=== PATIENT | male | born 1930 | race Caucasian/White ===

== ENCOUNTER 2017-06-04 14:37 | Inpatient (IN) | payer MEDICARE, OTHER ==
[2017-06-16] MEDS ORDERED: SODIUM CHLORIDE 0.9% FLUSH 10 ML SOL IV PRN (05:30)
[2017-06-16] MEDS ORDERED: SCOPOLAMINE 1.5MG PATCH TD SCH (06:00)
[2017-06-16] MEDS ORDERED: LACTATED RINGERS 1,000 ML IV ONE (06:30)
[2017-06-16] MEDS ORDERED: BUPIVACAINE HCL 0.25% MPF 10 ML SOL INFIL ONE (06:51)
[2017-06-16] MEDS ORDERED: BUPIVACAINE LIPOSOME 20 ML SUS ONE (06:51)
[2017-06-16] MEDS ORDERED: SODIUM CHLORIDE 20 ML 40 ML ONE (06:52)
[2017-06-16] MEDS ORDERED: SEVOFLURANE INH ONE (07:05)
[2017-06-16] MEDS ORDERED: MIDAZOLAM 2 MG/2 ML SOL ONE (07:11)
[2017-06-16] MEDS ORDERED: FENTANYL 100MCG/2ML SOL ONE (07:11)
[2017-06-16] MEDS ORDERED: PROPOFOL 500 MG/50 ML EMU IV ONE (07:21)
[2017-06-16] MEDS ORDERED: CEFAZOLIN SODIUM 1 GM PDS ONE (07:29)
[2017-06-16] MEDS ORDERED: LACTATED RINGERS 1,000 ML IV SCH (07:30)
[2017-06-16] MEDS ORDERED: LIDOCAINE HCL 2% MPF SOL ONE (07:30)
[2017-06-16] MEDS: TRANEXAMIC ACID 100 MG/ML SOL ONE ×2 (08:46→10:33)
[2017-06-16] MEDS ORDERED: ALBUTEROL NEB SOL 2.5MG/3ML 1 VIAL SOL ONE (09:41)
[2017-06-16] MEDS ORDERED: ZOLPIDEM TARTRATE 5 MG TAB PO PRN (10:23)
[2017-06-16] MEDS ORDERED: ONDANSETRON 4 MG ODT BU PRN (10:23)
[2017-06-16] MEDS ORDERED: ONDANSETRON HCL 4 MG/2 ML SOL IV PRN (10:23)
[2017-06-16] MEDS ORDERED: FLEET ENEMA PR PRN (10:23)
[2017-06-16] MEDS ORDERED: DIAZEPAM 5 MG TAB PO PRN (10:23)
[2017-06-16] MEDS ORDERED: ACETAMINOPHEN 325 MG PO PRN (10:23)
[2017-06-16] MEDS ORDERED: ALUMINUM/MAGNESIUM 30 ML SUS PO PRN (10:23)
[2017-06-16] MEDS ORDERED: MAGNESIUM HYDROXIDE 30 ML SUS PO PRN (10:23)
[2017-06-16] MEDS ORDERED: BISACODYL 10 MG SUP PR PRN (10:23)
[2017-06-16] MEDS ORDERED: SODIUM CHLORIDE 0.9% 500 ML 500 ML IV PRN (10:23)
[2017-06-16] MEDS ORDERED: HYDROMORPHONE 1 MG/ML SYRINGE IV PRN (11:00)
[2017-06-16] MEDS: SODIUM CHLORIDE 0.9% FLUSH 10 ML SOL IV SCH ×2 (12:43→17:49)
[2017-06-16] MEDS: DEXTROSE/SALINE 0.45/KCL 20MEQ 1,000 ML/1,000 ML SOL IV SCH ×2 (12:43→23:27)
[2017-06-16] MEDS: APAP/OXYCODONE 325/5 TAB PO PRN ×2 (16:08→23:28)
[2017-06-16] MEDS: CEFAZOLIN (PREMIX) 1 GM 1 GM/50 ML SOL IV SCH ×2 (16:14→23:28)
[2017-06-16] MEDS: GABAPENTIN 300 MG CAP PO SCH (20:16)
[2017-06-16] MEDS: HYDROCHLOROTHIAZIDE 25 MG TAB PO SCH (20:16)
[2017-06-16] MEDS ORDERED: SENNOSIDES A AND B 8.6 MG TAB PO SCH (21:00)
[2017-06-17] MEDS: SODIUM CHLORIDE 0.9% FLUSH 10 ML SOL IV SCH ×2 (02:18→12:08)
[2017-06-17] MEDS: DEXTROSE/SALINE 0.45/KCL 20MEQ 1,000 ML/1,000 ML SOL IV SCH ×2 (06:41→10:54)
[2017-06-17 07:28] LABS: MEAN CORPUSCULAR HGB CONC 33.1 gm/dl (32.0-36.0)
[2017-06-17] MEDS ORDERED: APAP/HYDROCODONE 325/5 TAB PO PRN (08:35)
[2017-06-17] MEDS ORDERED: PANTOPRAZOLE SODIUM 40 MG ECT PO SCH (09:00)
[2017-06-17] MEDS ORDERED: RIVAROXABAN 10 MG TAB PO SCH (09:00)
[2017-06-17] MEDS ORDERED: LISINOPRIL 5 MG TAB PO SCH (09:00)
[2017-06-17] MEDS ORDERED: FERROUS SULFATE 325 MG TAB PO SCH (09:00)
[2017-06-17] MEDS: GABAPENTIN 300 MG CAP PO SCH (09:44)
[2017-06-17] MEDS: HYDROCHLOROTHIAZIDE 25 MG TAB PO SCH (09:49)
[2017-06-17 12:12] VITALS: TEMP 97.8
[2017-06-17] MEDS ORDERED: EPINEPHRINE 1:1000 AMP 1 MG/ML SOL IV PRN (12:45)
[2017-06-17] MEDS ORDERED: LIDOCAINE HCL 2% (100 MG) CARP ONE (12:51)
[2017-06-17] MEDS ORDERED: ROCURONIUM BROMIDE 10 MG/ML SOL IV ONE ×2 (12:51→13:23)
[2017-06-17] MEDS ORDERED: ATROPINE 0.1 MG/ML SOL ONE (12:51)
[2017-06-17] MEDS ORDERED: ETOMIDATE 2 MG/ML SOL IV ONE ×2 (12:51→13:00)
[2017-06-17] MEDS ORDERED: SUCCINYLCHOLINE CHLORIDE 20 MG/ML SOL IV ONE ×2 (12:51→13:01)
[2017-06-17] MEDS: SODIUM CHLORIDE 0.9% 1000ML 1,000 ML IV SCH ×2 (12:53→13:55)
[2017-06-17] MEDS ORDERED: MIDAZOLAM 2 MG/2 ML SOL ONE ×2 (13:04→13:12)
[2017-06-17] MEDS ORDERED: MIDAZOLAM 2 MG/2 ML SOL IV ONE ×2 (13:07→13:15)
[2017-06-17 13:19] LABS: ABG PH 7.36 (7.35-7.45)
[2017-06-17] MEDS ORDERED: MORPHINE SULFATE 10 MG/ML SOL ONE (13:29)
[2017-06-17] MEDS ORDERED: MORPHINE SULFATE 10 MG/ML SOL IV ONE ×2 (13:30→13:35)
[2017-06-17 13:32] VITALS: RESP 12
[2017-06-17] MEDS ORDERED: INSULIN HUMAN REGULAR 100 U/ML SOL ONE (13:40)
[2017-06-17] MEDS ORDERED: INSULIN HUMAN REGULAR 100 U/ML SOL IV ONE (13:42)
[2017-06-17 14:09] LABS: POTASSIUM 4.7 mMol/L (3.5-5.1)
[2017-06-17 14:10] LABS: CALCIUM 7.6 mg/dl (8.5-10.1)
[2017-06-17 14:55] VITALS: BP 107/71; PULSE 87; O2SAT 97
== END 2017-06-17 14:20 | disposition short-term general hospital (02) | DRG 469 ==
LOC: ACUTE CARE 06-16 05:20
PROVIDERS: ADMIT Orthopaedic Surgery; ATTEND Orthopaedic Surgery
PROC: 0SRD0J9 Replacement of Left Knee Joint with Synthetic Substitute, Cemented, Open Approach (ICD-10-PCS; principal; 2017-06-16 08:00)
PROC: 0CHY7BZ Insertion of Airway into Mouth and Throat, Via Natural or Artificial Opening (ICD-10-PCS; 2017-06-17)
DX: M17.12 Unilateral primary osteoarthritis, left knee (principal); R09.2 Respiratory arrest; Z86.2 Personal history of diseases of the blood and blood-forming organs and certain disorders involving the immune mechanism; Z86.711 Personal history of pulmonary embolism; I12.9 Hypertensive chronic kidney disease with stage 1 through stage 4 chronic kidney disease, or unspecified chronic kidney disease; E78.5 Hyperlipidemia, unspecified; N18.3 Chronic kidney disease, stage 3 (moderate); R41.0 Disorientation, unspecified; Z96.652 Presence of left artificial knee joint; T17.220A Food in pharynx causing asphyxiation, initial encounter
CPT/HCPCS: 36415; 36600; 71010; 73560; 80048; 82803; 82962; 85027; 85049; 93005; 93012; 94002; 94150; 99070; J0330; J0461; J0690; J1815; J2001; J2250; J2270; J3010; J7603; J2704; L1830

== ENCOUNTER 2017-06-26 10:26 | Inpatient (IN) | payer MEDICARE, OTHER ==
[2017-06-26] MEDS ORDERED: WARFARIN SODIUM 2 MG TAB PO SCH (18:00)
[2017-06-27] MEDS: AMIODARONE 200 MG TAB PO SCH (10:53)
[2017-06-27] MEDS: FUROSEMIDE 20 MG TAB PO SCH (10:54)
[2017-06-27] MEDS: ASPIRIN EC 81 MG PO SCH (10:54)
[2017-06-27] MEDS: LISINOPRIL 5 MG TAB PO SCH (10:55)
[2017-06-27] MEDS: PANTOPRAZOLE SODIUM 40 MG ECT PO SCH (10:55)
[2017-06-27] MEDS: CLOPIDOGREL 75 MG TAB PO SCH (10:55)
[2017-06-27] MEDS ORDERED: WARFARIN SODIUM 2 MG TAB PO ONE (18:00)
[2017-06-27] MEDS: ATORVASTATIN 10 MG TAB PO SCH (19:59)
[2017-06-28] MEDS: FUROSEMIDE 20 MG TAB PO SCH (09:11)
[2017-06-28] MEDS: CLOPIDOGREL 75 MG TAB PO SCH (09:11)
[2017-06-28] MEDS: PANTOPRAZOLE SODIUM 40 MG ECT PO SCH (09:11)
[2017-06-28] MEDS: LISINOPRIL 5 MG TAB PO SCH (09:11)
[2017-06-28] MEDS: AMIODARONE 200 MG TAB PO SCH (09:11)
[2017-06-28] MEDS: ASPIRIN EC 81 MG PO SCH (09:11)
[2017-06-28] MEDS ORDERED: WARFARIN SODIUM 2.5 MG TAB PO SCH (18:00)
[2017-06-28] MEDS: ATORVASTATIN 10 MG TAB PO SCH (20:00)
[2017-06-29] MEDS: CLOPIDOGREL 75 MG TAB PO SCH (08:58)
[2017-06-29] MEDS: PANTOPRAZOLE SODIUM 40 MG ECT PO SCH (08:58)
[2017-06-29] MEDS: FUROSEMIDE 20 MG TAB PO SCH (08:58)
[2017-06-29] MEDS: AMIODARONE 200 MG TAB PO SCH (08:58)
[2017-06-29] MEDS: LISINOPRIL 5 MG TAB PO SCH (08:58)
[2017-06-29] MEDS: ASPIRIN EC 81 MG PO SCH (08:58)
[2017-06-29] MEDS ORDERED: WARFARIN SODIUM 2 MG TAB PO ONE (18:00)
[2017-06-29] MEDS: ATORVASTATIN 10 MG TAB PO SCH (20:17)
[2017-06-30] MEDS: AMIODARONE 200 MG TAB PO SCH (09:08)
[2017-06-30] MEDS: ASPIRIN EC 81 MG PO SCH (09:08)
[2017-06-30] MEDS: PANTOPRAZOLE SODIUM 40 MG ECT PO SCH (09:09)
[2017-06-30] MEDS: FUROSEMIDE 20 MG TAB PO SCH (09:09)
[2017-06-30] MEDS: CLOPIDOGREL 75 MG TAB PO SCH (09:09)
[2017-06-30] MEDS: LISINOPRIL 5 MG TAB PO SCH (09:09)
[2017-06-30] MEDS: WARFARIN SODIUM 4 MG TAB PO SCH (18:16)
[2017-06-30] MEDS: ATORVASTATIN 10 MG TAB PO SCH (21:06)
[2017-07-01] MEDS: PANTOPRAZOLE SODIUM 40 MG ECT PO SCH (09:04)
[2017-07-01] MEDS: LISINOPRIL 5 MG TAB PO SCH (09:04)
[2017-07-01] MEDS: CLOPIDOGREL 75 MG TAB PO SCH (09:04)
[2017-07-01] MEDS: AMIODARONE 200 MG TAB PO SCH (09:05)
[2017-07-01] MEDS: FUROSEMIDE 20 MG TAB PO SCH (09:05)
[2017-07-01] MEDS: ASPIRIN EC 81 MG PO SCH (09:05)
[2017-07-01] MEDS ORDERED: TEMAZEPAM 15MG 15 MG CAP PO PRN (11:58)
[2017-07-01] MEDS: WARFARIN SODIUM 4 MG TAB PO SCH (17:56)
[2017-07-01] MEDS: ATORVASTATIN 10 MG TAB PO SCH (20:14)
[2017-07-02 07:17] LABS: BASOPHILS % (AUTO) 2 % (0-3); EOSINOPHILS % (AUTO) 2 % (0-9); HEMATOCRIT 30 % (39-53); MEAN CORPUSCULAR HGB CONC 33.3 gm/dl (32.0-36.0); MEAN CORPUSCULAR VOLUME 87 fL (80-100); MONOCYTES % (AUTO) 20.8 % (0-12); NEUTROPHILS % (AUTO) 46.5 % (37-80)
[2017-07-02 07:22] LABS: CALCIUM 8.4 mg/dl (8.5-10.1)
[2017-07-02 07:26] LABS: POTASSIUM 4.8 mMol/L (3.5-5.1)
[2017-07-02] MEDS: ASPIRIN EC 81 MG PO SCH (08:36)
[2017-07-02] MEDS: CLOPIDOGREL 75 MG TAB PO SCH (08:36)
[2017-07-02] MEDS: AMIODARONE 200 MG TAB PO SCH (08:36)
[2017-07-02] MEDS: FUROSEMIDE 20 MG TAB PO SCH (08:36)
[2017-07-02] MEDS: PANTOPRAZOLE SODIUM 40 MG ECT PO SCH (08:37)
[2017-07-02] MEDS: LISINOPRIL 5 MG TAB PO SCH (08:37)
[2017-07-02] MEDS: WARFARIN SODIUM 4 MG TAB PO SCH (17:48)
[2017-07-02] MEDS: ATORVASTATIN 10 MG TAB PO SCH (20:12)
[2017-07-03] MEDS: AMIODARONE 200 MG TAB PO SCH (09:11)
[2017-07-03] MEDS: LISINOPRIL 5 MG TAB PO SCH (09:12)
[2017-07-03] MEDS: CLOPIDOGREL 75 MG TAB PO SCH (09:12)
[2017-07-03] MEDS: PANTOPRAZOLE SODIUM 40 MG ECT PO SCH (09:12)
[2017-07-03] MEDS: ASPIRIN EC 81 MG PO SCH (09:12)
[2017-07-03] MEDS: FUROSEMIDE 20 MG TAB PO SCH (09:12)
[2017-07-03] MEDS: WARFARIN SODIUM 4 MG TAB PO SCH (18:29)
[2017-07-03] MEDS: ATORVASTATIN 10 MG TAB PO SCH (21:43)
[2017-07-04] MEDS: FUROSEMIDE 20 MG TAB PO SCH (08:43)
[2017-07-04] MEDS: ACETAMINOPHEN 325 MG PO PRN (08:43)
[2017-07-04] MEDS: AMIODARONE 200 MG TAB PO SCH (08:43)
[2017-07-04] MEDS: CLOPIDOGREL 75 MG TAB PO SCH (08:43)
[2017-07-04] MEDS: LISINOPRIL 5 MG TAB PO SCH (08:43)
[2017-07-04] MEDS: PANTOPRAZOLE SODIUM 40 MG ECT PO SCH (08:43)
[2017-07-04] MEDS: ASPIRIN EC 81 MG PO SCH (08:43)
[2017-07-04] MEDS ORDERED: WARFARIN SODIUM 2 MG TAB PO ONE (18:00)
[2017-07-04] MEDS: ATORVASTATIN 10 MG TAB PO SCH (20:20)
[2017-07-05] MEDS: LISINOPRIL 5 MG TAB PO SCH (09:16)
[2017-07-05] MEDS: ASPIRIN EC 81 MG PO SCH (09:16)
[2017-07-05] MEDS: FUROSEMIDE 20 MG TAB PO SCH (09:16)
[2017-07-05] MEDS: AMIODARONE 200 MG TAB PO SCH (09:16)
[2017-07-05] MEDS: PANTOPRAZOLE SODIUM 40 MG ECT PO SCH (09:16)
[2017-07-05] MEDS: CLOPIDOGREL 75 MG TAB PO SCH (09:16)
[2017-07-05] MEDS ORDERED: WARFARIN SODIUM 4 MG TAB PO ONE (18:00)
[2017-07-05] MEDS: ATORVASTATIN 10 MG TAB PO SCH (20:47)
[2017-07-06] MEDS: CLOPIDOGREL 75 MG TAB PO SCH (08:43)
[2017-07-06] MEDS: LISINOPRIL 5 MG TAB PO SCH (08:43)
[2017-07-06] MEDS: FUROSEMIDE 20 MG TAB PO SCH (08:43)
[2017-07-06] MEDS: AMIODARONE 200 MG TAB PO SCH (08:43)
[2017-07-06] MEDS: ASPIRIN EC 81 MG PO SCH (08:43)
[2017-07-06] MEDS: PANTOPRAZOLE SODIUM 40 MG ECT PO SCH (08:43)
[2017-07-06] MEDS ORDERED: WARFARIN SODIUM 2 MG TAB PO ONE (18:00)
[2017-07-06] MEDS: ATORVASTATIN 10 MG TAB PO SCH (20:11)
[2017-07-07] MEDS: CLOPIDOGREL 75 MG TAB PO SCH (08:51)
[2017-07-07] MEDS: PANTOPRAZOLE SODIUM 40 MG ECT PO SCH (08:51)
[2017-07-07] MEDS: FUROSEMIDE 20 MG TAB PO SCH (08:51)
[2017-07-07] MEDS: AMIODARONE 200 MG TAB PO SCH (08:51)
[2017-07-07] MEDS: ASPIRIN EC 81 MG PO SCH ×2 (08:51→08:59)
[2017-07-07] MEDS: LISINOPRIL 5 MG TAB PO SCH (08:52)
[2017-07-07] MEDS: ASPIRIN 81 MG CHEWABLE CTB PO SCH (09:56)
[2017-07-07] MEDS: ATORVASTATIN 10 MG TAB PO SCH (20:26)
[2017-07-08] MEDS: PANTOPRAZOLE SODIUM 40 MG ECT PO SCH (08:59)
[2017-07-08] MEDS: LISINOPRIL 5 MG TAB PO SCH (08:59)
[2017-07-08] MEDS: AMIODARONE 200 MG TAB PO SCH (08:59)
[2017-07-08] MEDS: ASPIRIN 81 MG CHEWABLE CTB PO SCH (08:59)
[2017-07-08] MEDS: CLOPIDOGREL 75 MG TAB PO SCH (08:59)
[2017-07-08] MEDS: FUROSEMIDE 20 MG TAB PO SCH (08:59)
[2017-07-08] MEDS: WARFARIN SODIUM 2 MG TAB PO SCH (17:56)
[2017-07-08] MEDS: ATORVASTATIN 10 MG TAB PO SCH (20:40)
[2017-07-09] MEDS: AMIODARONE 200 MG TAB PO SCH (09:56)
[2017-07-09] MEDS: FUROSEMIDE 20 MG TAB PO SCH (09:56)
[2017-07-09] MEDS: CLOPIDOGREL 75 MG TAB PO SCH (09:56)
[2017-07-09] MEDS: PANTOPRAZOLE SODIUM 40 MG ECT PO SCH (09:57)
[2017-07-09] MEDS: ASPIRIN 81 MG CHEWABLE CTB PO SCH (09:57)
[2017-07-09] MEDS: LISINOPRIL 5 MG TAB PO SCH (09:57)
[2017-07-09 13:36] LABS: APPEARANCE,URINE Slightly Cloudy; BILIRUBIN,URINE NEGATIVE (NEGATIVE); COLOR,URINE Dark yellow; GLUCOSE, URINE (UA) NEGATIVE (NEGATIVE); KETONES,URINE NEGATIVE (NEGATIVE); LEUKOCYTE ESTERASE ,URINE 2+ (NEGATIVE); NITRATE,URINE NEGATIVE (NEGATIVE); OCCULT BLOOD,URINE 3+ (NEG-TRACE)
[2017-07-09 13:56] LABS: RBC,URINE TNTC (0-3AV/HPF)
[2017-07-09] MEDS ORDERED: LEVOFLOXACIN 500 MG TAB PO SCH (15:49)
[2017-07-09] MEDS: WARFARIN SODIUM 2 MG TAB PO SCH (17:39)
[2017-07-09] MEDS: ATORVASTATIN 10 MG TAB PO SCH (20:53)
[2017-07-10] MEDS: SULFAMETHOXAZOLE/TRIMETHOPRI 800/160 MG PO SCH ×2 (09:33→21:06)
[2017-07-10] MEDS: ACETAMINOPHEN 325 MG PO PRN (09:33)
[2017-07-10] MEDS: ASPIRIN 81 MG CHEWABLE CTB PO SCH (09:35)
[2017-07-10] MEDS: FUROSEMIDE 20 MG TAB PO SCH (09:35)
[2017-07-10] MEDS: PANTOPRAZOLE SODIUM 40 MG ECT PO SCH (09:35)
[2017-07-10] MEDS: AMIODARONE 200 MG TAB PO SCH (09:35)
[2017-07-10] MEDS: CLOPIDOGREL 75 MG TAB PO SCH (09:35)
[2017-07-10] MEDS: LISINOPRIL 5 MG TAB PO SCH (09:35)
[2017-07-10] MEDS ORDERED: WARFARIN SODIUM 1 MG TAB PO ONE (18:00)
[2017-07-10] MEDS: ATORVASTATIN 10 MG TAB PO SCH (21:06)
[2017-07-11] MEDS: ACETAMINOPHEN 325 MG PO PRN (04:06)
[2017-07-11 07:44] LABS: BASOPHILS % (AUTO) 1 % (0-3); EOSINOPHILS % (AUTO) 1 % (0-9); HEMATOCRIT 32 % (39-53); MEAN CORPUSCULAR VOLUME 85 fL (80-100); MONOCYTES % (AUTO) 23.6 % (0-12); NEUTROPHILS % (AUTO) 53.3 % (37-80)
[2017-07-11 07:48] LABS: CALCIUM 8.6 mg/dl (8.5-10.1); POTASSIUM 4.6 mMol/L (3.5-5.1)
[2017-07-11] MEDS ORDERED: APAP/HYDROCODONE 325/5 TAB PO PRN (10:47)
[2017-07-11] MEDS: FUROSEMIDE 20 MG TAB PO SCH (10:50)
[2017-07-11] MEDS: AMIODARONE 200 MG TAB PO SCH (10:50)
[2017-07-11] MEDS: CLOPIDOGREL 75 MG TAB PO SCH (10:51)
[2017-07-11] MEDS: PANTOPRAZOLE SODIUM 40 MG ECT PO SCH (10:51)
[2017-07-11] MEDS: LISINOPRIL 5 MG TAB PO SCH (10:52)
[2017-07-11] MEDS: ASPIRIN 81 MG CHEWABLE CTB PO SCH (10:52)
[2017-07-11] MEDS: SULFAMETHOXAZOLE/TRIMETHOPRI 800/160 MG PO SCH ×2 (10:53→21:31)
[2017-07-11] MEDS: BISACODYL 5 MG TAB ECT PO PRN (10:54)
[2017-07-11] MEDS: ONDANSETRON 4 MG ODT BU PRN ×2 (13:16→17:09)
[2017-07-11] MEDS ORDERED: TRAMADOL HYDROCHLORIDE 50 MG TAB PO PRN (16:36)
[2017-07-11] MEDS ORDERED: WARFARIN SODIUM 1 MG TAB PO ONE (18:00)
[2017-07-11] MEDS: ATORVASTATIN 10 MG TAB PO SCH (21:31)
[2017-07-12] MEDS: FUROSEMIDE 20 MG TAB PO SCH (09:05)
[2017-07-12] MEDS: LISINOPRIL 5 MG TAB PO SCH (09:06)
[2017-07-12] MEDS: CLOPIDOGREL 75 MG TAB PO SCH (09:06)
[2017-07-12] MEDS: PANTOPRAZOLE SODIUM 40 MG ECT PO SCH (09:06)
[2017-07-12] MEDS: ASPIRIN 81 MG CHEWABLE CTB PO SCH (09:07)
[2017-07-12] MEDS: SULFAMETHOXAZOLE/TRIMETHOPRI 800/160 MG PO SCH ×2 (09:07→20:29)
[2017-07-12] MEDS: BISACODYL 5 MG TAB ECT PO PRN (09:07)
[2017-07-12] MEDS: ONDANSETRON 4 MG ODT BU PRN ×2 (09:07→16:52)
[2017-07-12] MEDS: AMIODARONE 200 MG TAB PO SCH (09:19)
[2017-07-12] MEDS ORDERED: WARFARIN SODIUM 2 MG TAB PO ONE (18:00)
[2017-07-12] MEDS: MAGNESIUM HYDROXIDE 30 ML SUS GT PRN (18:35)
[2017-07-12] MEDS: ATORVASTATIN 10 MG TAB PO SCH (20:29)
[2017-07-12] MEDS: PROCHLORPERAZINE EDISYLATE 5 MG/ML SOL IM PRN (21:01)
[2017-07-13] MEDS: PROCHLORPERAZINE EDISYLATE 5 MG/ML SOL IM PRN (08:34)
[2017-07-13] MEDS: AMIODARONE 200 MG TAB PO SCH (08:51)
[2017-07-13] MEDS: LISINOPRIL 5 MG TAB PO SCH (08:52)
[2017-07-13] MEDS: CLOPIDOGREL 75 MG TAB PO SCH (08:52)
[2017-07-13] MEDS: PANTOPRAZOLE SODIUM 40 MG ECT PO SCH (08:52)
[2017-07-13] MEDS: FUROSEMIDE 20 MG TAB PO SCH (08:52)
[2017-07-13] MEDS: ASPIRIN 81 MG CHEWABLE CTB PO SCH (08:53)
[2017-07-13] MEDS: SULFAMETHOXAZOLE/TRIMETHOPRI 800/160 MG PO SCH ×2 (08:53→20:33)
[2017-07-13] MEDS: BISACODYL 5 MG TAB ECT PO PRN (08:53)
[2017-07-13] MEDS ORDERED: WARFARIN SODIUM 1 MG TAB PO ONE (18:00)
[2017-07-13] MEDS: ATORVASTATIN 10 MG TAB PO SCH (20:31)
[2017-07-14] MEDS: AMIODARONE 200 MG TAB PO SCH (08:25)
[2017-07-14] MEDS: CLOPIDOGREL 75 MG TAB PO SCH (08:25)
[2017-07-14] MEDS: ASPIRIN 81 MG CHEWABLE CTB PO SCH (08:26)
[2017-07-14] MEDS: PANTOPRAZOLE SODIUM 40 MG ECT PO SCH (08:26)
[2017-07-14] MEDS: LISINOPRIL 5 MG TAB PO SCH (08:26)
[2017-07-14] MEDS: SULFAMETHOXAZOLE/TRIMETHOPRI 800/160 MG PO SCH ×2 (08:27→20:00)
[2017-07-14] MEDS: FUROSEMIDE 20 MG TAB PO SCH (08:29)
[2017-07-14] MEDS: PROCHLORPERAZINE EDISYLATE 5 MG/ML SOL IM PRN ×2 (08:51→15:24)
[2017-07-14] MEDS ORDERED: WARFARIN SODIUM 2 MG TAB PO ONE (18:00)
[2017-07-14] MEDS: ATORVASTATIN 10 MG TAB PO SCH (20:00)
[2017-07-15 07:21] LABS: ALBUMIN 2.3 gm/dl (3.4-5.0); CALCIUM 8.1 mg/dl (8.5-10.1); POTASSIUM 4.9 mMol/L (3.5-5.1)
[2017-07-15 07:27] LABS: MEAN CORPUSCULAR HGB CONC 32.8 gm/dl (32.0-36.0)
[2017-07-15] MEDS: CLOPIDOGREL 75 MG TAB PO SCH (09:45)
[2017-07-15] MEDS: PANTOPRAZOLE SODIUM 40 MG ECT PO SCH (09:45)
[2017-07-15] MEDS: ASPIRIN 81 MG CHEWABLE CTB PO SCH (09:45)
[2017-07-15] MEDS ORDERED: SODIUM CHLORIDE 0.9% 100 ML 100 ML IV ONE (09:55)
[2017-07-15] MEDS ORDERED: LEVOFLOXACIN 25 MG/ML SOL IV ONE (09:55)
[2017-07-15] MEDS: LEVOFLOXACIN 25 MG/ML 500 MG in SODIUM CHLORIDE 0.9% 100 ML 100 ML IV SCH (10:14)
[2017-07-15] MEDS: SODIUM CHLORIDE 0.9% FLUSH 10 ML SOL IV SCH ×2 (10:22→17:47)
[2017-07-15] MEDS: PROCHLORPERAZINE EDISYLATE 5 MG/ML SOL IM PRN (16:23)
[2017-07-15] MEDS ORDERED: WARFARIN SODIUM 4 MG TAB PO SCH (18:00)
[2017-07-15] MEDS: ATORVASTATIN 10 MG TAB PO SCH (20:28)
[2017-07-16] MEDS: SODIUM CHLORIDE 0.9% FLUSH 10 ML SOL IV SCH ×4 (05:58→17:33)
[2017-07-16] MEDS ORDERED: SODIUM CHLORIDE 0.9% 100 ML 100 ML IV ONE (08:02)
[2017-07-16] MEDS ORDERED: LEVOFLOXACIN 25 MG/ML SOL IV ONE (08:02)
[2017-07-16] MEDS: LEVOFLOXACIN 25 MG/ML 500 MG in SODIUM CHLORIDE 0.9% 100 ML 100 ML IV SCH (08:38)
[2017-07-16] MEDS: PROCHLORPERAZINE EDISYLATE 5 MG/ML SOL IM PRN (08:43)
[2017-07-16] MEDS: ASPIRIN 81 MG CHEWABLE CTB PO SCH (09:33)
[2017-07-16] MEDS: PANTOPRAZOLE SODIUM 40 MG ECT PO SCH (09:33)
[2017-07-16] MEDS: CLOPIDOGREL 75 MG TAB PO SCH (09:33)
[2017-07-16] MEDS: ONDANSETRON 4 MG ODT BU PRN (11:37)
[2017-07-16] MEDS: ACETAMINOPHEN 325 MG PO PRN (16:05)
[2017-07-16] MEDS: METOCLOPRAMIDE HYDROCHLORIDE 5 MG TAB PO SCH (16:05)
[2017-07-16] MEDS: WARFARIN SODIUM 4 MG TAB PO SCH (17:32)
[2017-07-16] MEDS: ATORVASTATIN 10 MG TAB PO SCH (20:32)
[2017-07-17] MEDS: SODIUM CHLORIDE 0.9% FLUSH 10 ML SOL IV SCH ×3 (02:42→17:42)
[2017-07-17] MEDS: METOCLOPRAMIDE HYDROCHLORIDE 5 MG TAB PO SCH ×3 (07:22→16:09)
[2017-07-17] MEDS: ASPIRIN 81 MG CHEWABLE CTB PO SCH (09:01)
[2017-07-17] MEDS: CLOPIDOGREL 75 MG TAB PO SCH (09:01)
[2017-07-17] MEDS: PANTOPRAZOLE SODIUM 40 MG ECT PO SCH (09:01)
[2017-07-17] MEDS ORDERED: SODIUM CHLORIDE 0.9% 100 ML 100 ML IV ONE (09:12)
[2017-07-17] MEDS ORDERED: LEVOFLOXACIN 25 MG/ML SOL IV ONE (09:12)
[2017-07-17] MEDS: LEVOFLOXACIN 25 MG/ML 500 MG in SODIUM CHLORIDE 0.9% 100 ML 100 ML IV SCH (09:21)
[2017-07-17] MEDS: WARFARIN SODIUM 4 MG TAB PO SCH (17:42)
[2017-07-17] MEDS: ATORVASTATIN 10 MG TAB PO SCH (20:48)
[2017-07-17] MEDS: BISACODYL 5 MG TAB ECT PO PRN (21:01)
[2017-07-18] MEDS: SODIUM CHLORIDE 0.9% FLUSH 10 ML SOL IV SCH ×4 (02:50→17:57)
[2017-07-18] MEDS: METOCLOPRAMIDE HYDROCHLORIDE 5 MG TAB PO SCH ×3 (07:15→16:04)
[2017-07-18] MEDS ORDERED: LEVOFLOXACIN 25 MG/ML SOL IV ONE (07:36)
[2017-07-18] MEDS ORDERED: SODIUM CHLORIDE 0.9% 100 ML 100 ML IV ONE (07:36)
[2017-07-18] MEDS ORDERED: SODIUM CHLORIDE 0.45% 1000 ML 1,000 ML with POTASSIUM CHLORIDE 2 MEQ/ML 20 MEQ IV ONE (07:53)
[2017-07-18] MEDS: LEVOFLOXACIN 25 MG/ML 500 MG in SODIUM CHLORIDE 0.9% 100 ML 100 ML IV SCH (08:01)
[2017-07-18] MEDS: PANTOPRAZOLE SODIUM 40 MG ECT PO SCH (08:01)
[2017-07-18] MEDS: CLOPIDOGREL 75 MG TAB PO SCH (08:01)
[2017-07-18] MEDS: ASPIRIN 81 MG CHEWABLE CTB PO SCH (08:01)
[2017-07-18] MEDS: MAGNESIUM HYDROXIDE 30 ML SUS GT PRN (08:01)
[2017-07-18] MEDS: WARFARIN SODIUM 2 MG TAB PO SCH (17:55)
[2017-07-18] MEDS: ATORVASTATIN 10 MG TAB PO SCH (20:52)
[2017-07-19] MEDS: SODIUM CHLORIDE 0.9% FLUSH 10 ML SOL IV SCH ×4 (02:40→17:47)
[2017-07-19] MEDS: ACETAMINOPHEN 325 MG PO PRN (03:39)
[2017-07-19] MEDS ORDERED: LEVOFLOXACIN 25 MG/ML SOL IV ONE ×2 (05:42→23:10)
[2017-07-19] MEDS ORDERED: SODIUM CHLORIDE 0.9% 100 ML 100 ML IV ONE ×2 (05:42→23:10)
[2017-07-19] MEDS: METOCLOPRAMIDE HYDROCHLORIDE 5 MG TAB PO SCH ×3 (07:18→16:09)
[2017-07-19] MEDS: CLOPIDOGREL 75 MG TAB PO SCH (08:29)
[2017-07-19] MEDS: PANTOPRAZOLE SODIUM 40 MG ECT PO SCH (08:29)
[2017-07-19] MEDS: ASPIRIN 81 MG CHEWABLE CTB PO SCH (08:29)
[2017-07-19] MEDS: LEVOFLOXACIN 25 MG/ML 500 MG in SODIUM CHLORIDE 0.9% 100 ML 100 ML IV SCH (08:33)
[2017-07-19] MEDS: WARFARIN SODIUM 2 MG TAB PO SCH (17:32)
[2017-07-19] MEDS: ATORVASTATIN 10 MG TAB PO SCH (20:07)
[2017-07-20] MEDS: SODIUM CHLORIDE 0.9% FLUSH 10 ML SOL IV SCH ×4 (03:00→17:50)
[2017-07-20] MEDS: METOCLOPRAMIDE HYDROCHLORIDE 5 MG TAB PO SCH ×3 (06:47→16:30)
[2017-07-20] MEDS: CLOPIDOGREL 75 MG TAB PO SCH (08:04)
[2017-07-20] MEDS: ASPIRIN 81 MG CHEWABLE CTB PO SCH (08:04)
[2017-07-20] MEDS: PANTOPRAZOLE SODIUM 40 MG ECT PO SCH (08:04)
[2017-07-20] MEDS: LEVOFLOXACIN 25 MG/ML 500 MG in SODIUM CHLORIDE 0.9% 100 ML 100 ML IV SCH (08:11)
[2017-07-20] MEDS ORDERED: WARFARIN SODIUM 4 MG TAB PO ONE (18:00)
[2017-07-20] MEDS: ATORVASTATIN 10 MG TAB PO SCH (21:19)
[2017-07-21] MEDS: SODIUM CHLORIDE 0.9% FLUSH 10 ML SOL IV SCH ×3 (02:20→10:24)
[2017-07-21] MEDS: METOCLOPRAMIDE HYDROCHLORIDE 5 MG TAB PO SCH ×3 (07:12→16:19)
[2017-07-21 07:36] LABS: ALBUMIN 2.1 gm/dl (3.4-5.0)
[2017-07-21 07:37] LABS: POTASSIUM 4.5 mMol/L (3.5-5.1)
[2017-07-21] MEDS ORDERED: SODIUM CHLORIDE 0.9% 100 ML 100 ML IV ONE (08:40)
[2017-07-21] MEDS ORDERED: LEVOFLOXACIN 25 MG/ML SOL IV ONE (08:40)
[2017-07-21] MEDS: LEVOFLOXACIN 25 MG/ML 500 MG in SODIUM CHLORIDE 0.9% 100 ML 100 ML IV SCH (08:51)
[2017-07-21] MEDS: PANTOPRAZOLE SODIUM 40 MG ECT PO SCH (08:51)
[2017-07-21] MEDS: ASPIRIN 81 MG CHEWABLE CTB PO SCH (08:51)
[2017-07-21] MEDS: CLOPIDOGREL 75 MG TAB PO SCH (08:51)
[2017-07-21] MEDS: ATORVASTATIN 10 MG TAB PO SCH (20:49)
[2017-07-22] MEDS: SODIUM CHLORIDE 0.9% FLUSH 10 ML SOL IV SCH ×4 (01:16→15:49)
[2017-07-22] MEDS: METOCLOPRAMIDE HYDROCHLORIDE 5 MG TAB PO SCH ×3 (07:12→15:48)
[2017-07-22] MEDS ORDERED: SODIUM CHLORIDE 0.9% 100 ML 100 ML IV ONE (07:38)
[2017-07-22] MEDS ORDERED: LEVOFLOXACIN 25 MG/ML SOL IV ONE (07:38)
[2017-07-22] MEDS: LEVOFLOXACIN 25 MG/ML 500 MG in SODIUM CHLORIDE 0.9% 100 ML 100 ML IV SCH (08:10)
[2017-07-22] MEDS: CLOPIDOGREL 75 MG TAB PO SCH (08:11)
[2017-07-22] MEDS: PANTOPRAZOLE SODIUM 40 MG ECT PO SCH (08:11)
[2017-07-22] MEDS: ASPIRIN 81 MG CHEWABLE CTB PO SCH (08:11)
[2017-07-22] MEDS: WARFARIN SODIUM 2 MG TAB PO SCH (17:17)
[2017-07-22] MEDS: ATORVASTATIN 10 MG TAB PO SCH (20:15)
[2017-07-23] MEDS: SODIUM CHLORIDE 0.9% FLUSH 10 ML SOL IV SCH ×3 (00:01→16:27)
[2017-07-23] MEDS: METOCLOPRAMIDE HYDROCHLORIDE 5 MG TAB PO SCH ×3 (07:10→16:30)
[2017-07-23] MEDS: ASPIRIN 81 MG CHEWABLE CTB PO SCH (09:04)
[2017-07-23] MEDS: PANTOPRAZOLE SODIUM 40 MG ECT PO SCH (09:04)
[2017-07-23] MEDS: CLOPIDOGREL 75 MG TAB PO SCH (09:04)
[2017-07-23] MEDS: FUROSEMIDE 40 MG TAB PO SCH (17:05)
[2017-07-23] MEDS: WARFARIN SODIUM 2 MG TAB PO SCH (17:06)
[2017-07-23] MEDS: ATORVASTATIN 10 MG TAB PO SCH (20:00)
[2017-07-24] MEDS: ACETAMINOPHEN 325 MG PO PRN ×2 (01:22→20:05)
[2017-07-24] MEDS: METOCLOPRAMIDE HYDROCHLORIDE 5 MG TAB PO SCH ×3 (06:12→16:25)
[2017-07-24] MEDS: PANTOPRAZOLE SODIUM 40 MG ECT PO SCH (08:13)
[2017-07-24] MEDS: CLOPIDOGREL 75 MG TAB PO SCH (08:13)
[2017-07-24] MEDS: ASPIRIN 81 MG CHEWABLE CTB PO SCH (08:13)
[2017-07-24] MEDS: FUROSEMIDE 40 MG TAB PO SCH (08:15)
[2017-07-24] MEDS ORDERED: WARFARIN SODIUM 4 MG TAB PO SCH (18:00)
[2017-07-24] MEDS: ATORVASTATIN 10 MG TAB PO SCH (20:05)
[2017-07-25] MEDS: METOCLOPRAMIDE HYDROCHLORIDE 5 MG TAB PO SCH ×2 (07:39→11:07)
[2017-07-25 08:10] VITALS: BP 129/54; PULSE 59; RESP 16; TEMP 98.3; O2SAT 96
[2017-07-25] MEDS: CLOPIDOGREL 75 MG TAB PO SCH (08:12)
[2017-07-25] MEDS: PANTOPRAZOLE SODIUM 40 MG ECT PO SCH (08:12)
[2017-07-25] MEDS: FUROSEMIDE 40 MG TAB PO SCH (08:12)
[2017-07-25] MEDS: ASPIRIN 81 MG CHEWABLE CTB PO SCH (08:12)
[2017-07-25] MEDS ORDERED: WARFARIN SODIUM 2 MG TAB PO SCH (18:00)
== END 2017-07-25 13:25 | DRG 564 ==
LOC: ACUTE CARE 12:43
PROVIDERS: ADMIT Family Medicine; ATTEND Family Medicine
PROC: F01ZDFZ Gait and/or Balance Assessment using Assistive, Adaptive, Supportive or Protective Equipment (ICD-10-PCS; principal; 2017-06-26)
PROC: F01ZBZZ Bed Mobility Assessment (ICD-10-PCS; 2017-06-26)
PROC: F01ZCZZ Transfer Assessment (ICD-10-PCS; 2017-06-26)
PROC: F02Z1ZZ Dressing Assessment (ICD-10-PCS; 2017-06-27)
PROC: F02Z0ZZ Bathing/Showering Assessment (ICD-10-PCS; 2017-06-27)
PROC: F02Z3ZZ Grooming/Personal Hygiene Assessment (ICD-10-PCS; 2017-06-27)
DX: Z96.652 Presence of left artificial knee joint (principal); I50.21 Acute systolic (congestive) heart failure; J18.9 Pneumonia, unspecified organism; I48.91 Unspecified atrial fibrillation; N18.3 Chronic kidney disease, stage 3 (moderate); N39.0 Urinary tract infection, site not specified; I25.10 Atherosclerotic heart disease of native coronary artery without angina pectoris; R13.10 Dysphagia, unspecified; K59.00 Constipation, unspecified; M25.562 Pain in left knee; R30.0 Dysuria; R33.9 Retention of urine, unspecified
CPT/HCPCS: 36415; 51798; 71010; 73564; 74230; 80048; 80053; 81001; 85025; 85027; 85610; 93005; J0780; J1956; A6219; A6232; Q3014

== ENCOUNTER 2017-08-31 15:32 | Emergency (ER) | payer MEDICARE, OTHER ==
[2017-08-31] MEDS ORDERED: LIDOCAINE HCL 2% (VISCOUS) 20 ML SOL MT ONE (15:45)
[2017-08-31] MEDS ORDERED: ALUMINUM/MAGNESIUM 30 ML SUS PO ONE (15:47)
[2017-08-31] MEDS ORDERED: LIDOCAINE HCL 2% (VISCOUS) 20 ML SOL ONE (15:48)
[2017-08-31] MEDS ORDERED: ALUMINUM/MAGNESIUM 30 ML SUS ONE (15:48)
[2017-08-31 15:50] LABS: BASOPHILS % (AUTO) 1 % (0-3); EOSINOPHILS % (AUTO) 0 % (0-9); HEMATOCRIT 29 % (39-53); MEAN CORPUSCULAR HGB CONC 32.7 gm/dl (32.0-36.0); MEAN CORPUSCULAR VOLUME 82 fL (80-100); MONOCYTES % (AUTO) 12.2 % (0-12); NEUTROPHILS % (AUTO) 67.4 % (37-80)
[2017-08-31 15:59] VITALS: TEMP 98.8
[2017-08-31 16:06] LABS: ALBUMIN 2.3 gm/dl (3.4-5.0); ALT 17 IU/L (14-63); CALCIUM 8.2 mg/dl (8.5-10.1); GLOM FILT RATE 45 mL/min (>60); POTASSIUM 4.1 mMol/L (3.5-5.1); SODIUM 140 mMol/L (136-145)
[2017-08-31 16:18] LABS: APPEARANCE,URINE Slightly Cloudy; BILIRUBIN,URINE NEGATIVE (NEGATIVE); COLOR,URINE Yellow; GLUCOSE, URINE (UA) NEGATIVE (NEGATIVE); KETONES,URINE NEGATIVE (NEGATIVE); LEUKOCYTE ESTERASE ,URINE 2+ (NEGATIVE); NITRATE,URINE NEGATIVE (NEGATIVE); OCCULT BLOOD,URINE 1+ (NEG-TRACE); UROBILINOGEN,URINE 0.2 (0.2-1.0 EU)
[2017-08-31 16:28] LABS: RBC,URINE 0-3 (0-3AV/HPF); WBC,URINE 20-25 (0-5AV/HPF)
[2017-08-31 16:56] VITALS: RESP 27
[2017-08-31 16:57] VITALS: BP 134/66; PULSE 76; O2SAT 98
== END 2017-08-31 16:51 | DRG 313 ==
LOC: ED 15:32
DX: R07.9 Chest pain, unspecified (principal); I50.9 Heart failure, unspecified
CPT/HCPCS: 36415; 71010; 80053; 81001; 83880; 84484; 85025; 93005; 99283

== ENCOUNTER 2017-10-02 15:37 | Emergency (ER) | payer MEDICARE, OTHER ==
[2017-10-02 15:56] LABS: APPEARANCE,URINE Slightly Cloudy; BILIRUBIN,URINE NEGATIVE (NEGATIVE); COLOR,URINE Yellow; GLUCOSE, URINE (UA) NEGATIVE (NEGATIVE); KETONES,URINE NEGATIVE (NEGATIVE); LEUKOCYTE ESTERASE ,URINE 2+ (NEGATIVE); NITRATE,URINE POSITIVE (NEGATIVE); OCCULT BLOOD,URINE 2+ (NEG-TRACE); PH,URINE 5.5; UROBILINOGEN,URINE 0.2 (0.2-1.0 EU)
[2017-10-02 16:12] LABS: WBC,URINE 30-45 (0-5AV/HPF)
[2017-10-02 16:33] LABS: BASOPHILS % (AUTO) 1 % (0-3); EOSINOPHILS % (AUTO) 0 % (0-9); HEMATOCRIT 29 % (39-53); MEAN CORPUSCULAR HGB CONC 33.1 gm/dl (32.0-36.0); MEAN CORPUSCULAR VOLUME 82 fL (80-100); MONOCYTES % (AUTO) 21.8 % (0-12); NEUTROPHILS % (AUTO) 65.4 % (37-80)
[2017-10-02 16:43] LABS: ALBUMIN 2.5 gm/dl (3.4-5.0); ALT 17 IU/L (14-63); CALCIUM 8.3 mg/dl (8.5-10.1); GLOM FILT RATE 44 mL/min (>60); POTASSIUM 4.2 mMol/L (3.5-5.1); SODIUM 142 mMol/L (136-145)
[2017-10-02 16:50] LABS: NORMAL RBCS PRESENT
[2017-10-02] MEDS ORDERED: LEVOFLOXACIN 500 MG TAB PO ONE (17:58)
[2017-10-02] MEDS ORDERED: LEVOFLOXACIN 500 MG TAB ONE (17:59)
[2017-10-02 18:31] VITALS: BP 149/88; PULSE 65; RESP 16; TEMP 97.1; O2SAT 96
== END 2017-10-02 18:14 | disposition home or self-care (01) | DRG 605 ==
LOC: ED 15:37
DX: S51.011A Laceration without foreign body of right elbow, initial encounter (principal); N39.0 Urinary tract infection, site not specified; W19.XXXA Unspecified fall, initial encounter; Z79.01 Long term (current) use of anticoagulants
CPT/HCPCS: 36415; 70450; 80053; 81001; 84484; 85025; 85610; 85730; 87077; 87088; 87186; 93005; 99284; A6232

== ENCOUNTER 2017-10-06 18:06 | Emergency (ER) | payer MEDICARE, OTHER ==
[2017-10-06 19:21] LABS: BASOPHILS % (AUTO) 1 % (0-3); EOSINOPHILS % (AUTO) 1 % (0-9); HEMATOCRIT 30 % (39-53); MEAN CORPUSCULAR HGB CONC 32.5 gm/dl (32.0-36.0); MONOCYTES % (AUTO) 15.9 % (0-12); NEUTROPHILS % (AUTO) 48.9 % (37-80)
[2017-10-06 19:24] LABS: MEAN CORPUSCULAR VOLUME 81 fL (80-100)
[2017-10-06 19:29] LABS: CALCIUM 8.2 mg/dl (8.5-10.1)
[2017-10-06 19:45] LABS: ANISOCYTOSIS SLIGHT AMT; HYPOCHROMASIA SLIGHT AMT; TEAR DROP CELLS PRESENT
[2017-10-06 19:46] LABS: OVALOCYTES PRESENT
[2017-10-06 20:04] VITALS: TEMP 97.9
[2017-10-06 20:45] VITALS: RESP 20
[2017-10-06 21:09] VITALS: BP 130/72; PULSE 67; O2SAT 96
== END 2017-10-06 21:02 | disposition home or self-care (01) | DRG 700 ==
LOC: ED 18:06
DX: T83.091A Other mechanical complication of indwelling urethral catheter, initial encounter (principal); R31.9 Hematuria, unspecified; R33.9 Retention of urine, unspecified; Z79.01 Long term (current) use of anticoagulants
CPT/HCPCS: 36415; 80048; 85025; 85610; 99283

== ENCOUNTER 2017-10-07 09:29 | Emergency (ER) | payer MEDICARE, OTHER ==
[2017-10-07 10:00] VITALS: RESP 16; TEMP 97.8
[2017-10-07 10:58] VITALS: BP 148/76; PULSE 64; O2SAT 95
== END 2017-10-07 10:34 | disposition home or self-care (01) | DRG 696 ==
LOC: ED 09:29
DX: R33.9 Retention of urine, unspecified (principal)
CPT/HCPCS: 99282

== ENCOUNTER 2017-10-14 21:55 | Emergency (ER) | payer MEDICARE, OTHER ==
[2017-10-14 22:24] LABS: BASOPHILS % (AUTO) 1 % (0-3); EOSINOPHILS % (AUTO) 2 % (0-9); HEMATOCRIT 29 % (39-53); MEAN CORPUSCULAR HGB CONC 30.5 gm/dl (32.0-36.0); MEAN CORPUSCULAR VOLUME 86 fL (80-100); MONOCYTES % (AUTO) 17.6 % (0-12); NEUTROPHILS % (AUTO) 35.4 % (37-80)
[2017-10-14 22:31] LABS: CALCIUM 8.2 mg/dl (8.5-10.1); POTASSIUM 4.2 mMol/L (3.5-5.1)
[2017-10-14 22:34] LABS: TARGET CELLS PRESENT
[2017-10-14 22:35] VITALS: TEMP 98.7
[2017-10-14 22:38] LABS: APPEARANCE,URINE Clear; BILIRUBIN,URINE NEGATIVE (NEGATIVE); COLOR,URINE Yellow; GLUCOSE, URINE (UA) NEGATIVE (NEGATIVE); KETONES,URINE NEGATIVE (NEGATIVE); LEUKOCYTE ESTERASE ,URINE TRACE (NEGATIVE); NITRATE,URINE NEGATIVE (NEGATIVE); OCCULT BLOOD,URINE 3+ (NEG-TRACE); PH,URINE 5.5; UROBILINOGEN,URINE 0.2 (0.2-1.0 EU)
[2017-10-14 22:41] LABS: RBC,URINE 60-80 (0-3AV/HPF)
[2017-10-14 23:29] VITALS: RESP 16
[2017-10-14 23:30] VITALS: BP 135/75; PULSE 56; O2SAT 95
== END 2017-10-14 23:15 | disposition home or self-care (01) | DRG 696 ==
LOC: ED 21:55
DX: R31.9 Hematuria, unspecified (principal); Z79.01 Long term (current) use of anticoagulants
CPT/HCPCS: 80048; 81001; 85025; 85610; 99283

== ENCOUNTER 2017-12-08 16:31 | Emergency (ER) | payer MEDICARE, OTHER ==
[2017-12-08 16:31] VITALS: O2SAT 95
[2017-12-08 17:12] VITALS: BP 157/80; PULSE 72; RESP 24; TEMP 97.8
[2017-12-08] MEDS ORDERED: SOLUMEDROL 125 MG/2 ML 125 MG/2 ML PDS IV ONE (18:16)
== END 2017-12-08 20:34 | disposition short-term general hospital (02) | DRG 726 ==
LOC: ED 16:31
DX: N40.1 Benign prostatic hyperplasia with lower urinary tract symptoms (principal); R33.8 Other retention of urine
CPT/HCPCS: 51798; 99283; 99284

== ENCOUNTER 2018-03-23 20:08 | Emergency (ER) | payer MEDICARE, OTHER ==
[2018-03-23 20:26] VITALS: RESP 16; TEMP 97.7
[2018-03-23 21:47] VITALS: BP 151/68; PULSE 57; O2SAT 94
== END 2018-03-23 21:43 | disposition home or self-care (01) | DRG 700 ==
LOC: ED 20:08
DX: T83.098A Other mechanical complication of other urinary catheter, initial encounter (principal); R33.9 Retention of urine, unspecified
CPT/HCPCS: 99282; 99283

== ENCOUNTER 2018-03-24 05:45 | Emergency (ER) | payer MEDICARE, OTHER ==
[2018-03-24 05:50] VITALS: O2SAT 94
[2018-03-24 05:59] VITALS: RESP 16; TEMP 98.4
[2018-03-24 07:13] LABS: APPEARANCE,URINE Cloudy; BILIRUBIN,URINE NEGATIVE (NEGATIVE); COLOR,URINE Yellow; GLUCOSE, URINE (UA) NEGATIVE (NEGATIVE); KETONES,URINE NEGATIVE (NEGATIVE); LEUKOCYTE ESTERASE ,URINE 2+ (NEGATIVE); NITRATE,URINE POSITIVE (NEGATIVE); OCCULT BLOOD,URINE 3+ (NEG-TRACE); UROBILINOGEN,URINE 0.2 (0.2-1.0 EU)
[2018-03-24 07:22] LABS: BACTERIA 1+ (< 1+); CRYSTALS NEGATIVE (0-3 AVE/HPF); RBC,URINE 15-20 (0-3AV/HPF)
[2018-03-24] MEDS ORDERED: LIDOCAINE HCL 1% MPF SOL ONE (07:27)
[2018-03-24] MEDS ORDERED: CEFTRIAXONE 1 GM PDS ONE ×2 (07:27→08:03)
[2018-03-24] MEDS ORDERED: SODIUM CHLORIDE 0.9% 500 ML 500 ML IV ONE (07:54)
[2018-03-24] MEDS ORDERED: CEFTRIAXONE 1 GM PDS 1 GM in SODIUM CHLORIDE 0.9% 50 ML 50 ML IV SCH (08:00)
[2018-03-24 08:15] LABS: BASOPHILS % (AUTO) 1 % (0-3); EOSINOPHILS % (AUTO) 0 % (0-9); HEMATOCRIT 30 % (39-53); HEMOGLOBIN 9.5 gm/dl (13.5-17.7); LYMPHOCYTES % (AUTO) 10.6 % (10-50); MEAN CORPUSCULAR HEMOGLOBIN 24.9 pg (27.0-32.0); MEAN CORPUSCULAR HGB CONC 31.8 gm/dl (32.0-36.0); MONOCYTES % (AUTO) 24.3 % (0-12); NEUTROPHILS % (AUTO) 64.1 % (37-80)
[2018-03-24 08:16] LABS: MEAN CORPUSCULAR VOLUME 78 fL (80-100)
[2018-03-24 08:25] LABS: ALBUMIN 3.3 gm/dl (3.4-5.0); BILIRUBIN,TOTAL 0.8 mg/dl (0.2-1.0); CALCIUM 8.2 mg/dl (8.5-10.1); CARBON DIOXIDE 29.8 mEq/L (21-32); CREATININE 1.45 mg/dl (0.80-1.30); POTASSIUM 3.4 mMol/L (3.5-5.1); TOTAL PROTEIN 7.1 gm/dl (6.4-8.2)
[2018-03-24 08:47] LABS: ANISOCYTOSIS SLIGHT AMT; HYPOCHROMASIA SLIGHT AMT; POIKILOCYTOSIS MOD AMT
[2018-03-24 08:48] LABS: ACANTHOCYTES PRESENT; OVALOCYTES PRESENT; TARGET CELLS PRESENT
[2018-03-24 10:21] VITALS: BP 102/51; PULSE 68
[2018-03-25 07:47] LABS: WBC,URINE 65-70 (0-5AV/HPF)
== END 2018-03-24 09:43 | disposition home or self-care (01) | DRG 696 ==
LOC: ED 05:45
DX: R33.9 Retention of urine, unspecified (principal); R10.9 Unspecified abdominal pain; T83.038A Leakage of other urinary catheter, initial encounter
CPT/HCPCS: 36415; 72192; 80053; 81001; 85025; 87077; 87088; 87186; 96365; 99283; 99285; J0696; Q9967; J2001

== ENCOUNTER 2018-11-13 17:54 | Emergency (ER) | payer OTHER ==
[2018-11-13 18:04] VITALS: BP 169/97; PULSE 65; RESP 16; TEMP 97.6; O2SAT 100
[2018-11-16] MEDS ORDERED: LORAZEPAM 2 MG/ML SOL IM ONE (15:32)
== END 2018-11-13 18:42 | disposition home or self-care (01) | DRG 151 ==
LOC: ED 17:54
DX: R04.0 Epistaxis (principal)
CPT/HCPCS: 30901; 99282; A6402

== ENCOUNTER 2018-11-20 18:19 | Emergency (ER) | payer OTHER ==
[2018-11-20 19:27] VITALS: RESP 16; TEMP 97
[2018-11-20 19:35] LABS: CALCIUM 8.2 mg/dl (8.5-10.1); CARBON DIOXIDE 29.4 mEq/L (21-32); CREATININE 1.4 mg/dl (0.80-1.30); POTASSIUM 4.4 mMol/L (3.5-5.1)
[2018-11-20 19:36] LABS: INR 1.02 (0.86-1.12)
[2018-11-20 19:38] LABS: BASOPHILS % (AUTO) 1 % (0-3); EOSINOPHILS % (AUTO) 1 % (0-9); HEMATOCRIT 29 % (39-53); HEMOGLOBIN 8.6 gm/dl (13.5-17.7); LYMPHOCYTES % (AUTO) 41.3 % (10-50); MEAN CORPUSCULAR HEMOGLOBIN 24.2 pg (27.0-32.0); MEAN CORPUSCULAR HGB CONC 30.1 gm/dl (32.0-36.0); MONOCYTES % (AUTO) 22.2 % (0-12); NEUTROPHILS % (AUTO) 35.1 % (37-80)
[2018-11-20 19:41] LABS: MEAN CORPUSCULAR VOLUME 80 fL (80-100)
[2018-11-20 20:13] LABS: ANISOCYTOSIS SLIGHT AMT; HYPOCHROMASIA SLIGHT
[2018-11-20 20:44] VITALS: BP 126/79; PULSE 56; O2SAT 94
== END 2018-11-20 20:27 | disposition home or self-care (01) | DRG 151 ==
LOC: ED 18:19
DX: R04.0 Epistaxis (principal); N18.3 Chronic kidney disease, stage 3 (moderate); D64.89 Other specified anemias
CPT/HCPCS: 30905; 36415; 80048; 85025; 85610; 99283

== ENCOUNTER 2018-12-23 08:17 | Emergency (ER) | payer OTHER ==
[2018-12-23 08:21] VITALS: RESP 20; TEMP 97.4
[2018-12-23 08:40] VITALS: BP 135/66; PULSE 69; O2SAT 95
== END 2018-12-23 09:30 | disposition home or self-care (01) | DRG 151 ==
LOC: ED 08:17
DX: R04.0 Epistaxis (principal)
CPT/HCPCS: 30905; 99282

== ENCOUNTER 2019-03-13 14:18 | Emergency (ER) | payer OTHER ==
[2019-03-13 14:38] VITALS: RESP 18; TEMP 98.9
[2019-03-13 15:51] VITALS: BP 146/75; PULSE 65; O2SAT 96
== END 2019-03-13 15:47 | disposition home or self-care (01) | DRG 700 ==
LOC: ED 14:18
DX: T83.091A Other mechanical complication of indwelling urethral catheter, initial encounter (principal); N18.9 Chronic kidney disease, unspecified
CPT/HCPCS: 99283

== ENCOUNTER 2019-05-10 18:34 | Emergency (ER) | payer OTHER ==
[2019-05-10 18:53] VITALS: BP 158/85; PULSE 50; RESP 18; TEMP 99.1; O2SAT 95
[2019-05-10] MEDS ORDERED: LIDOCAINE HCL 2% GEL TOP ONE ×2 (19:16→19:18)
== END 2019-05-10 20:10 | disposition home or self-care (01) | DRG 700 ==
LOC: ED 18:34
DX: T83.9XXA Unspecified complication of genitourinary prosthetic device, implant and graft, initial encounter (principal); R33.8 Other retention of urine
CPT/HCPCS: 99283; A9270-GY